=== PATIENT | female | born 2000 | race Hispanic/Latino ===

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

== ENCOUNTER 2021-04-25 22:45 | Emergency (ER) | payer OTHER ==
--- OUTSIDE RECORDS SUMMARY | 2021-04-25 22:48 | XMS REPORT | Continuity of Care Document ---
:2000 Author Organization [facility] t Address [address] [place] [address] [address]. [address] [place] [address] Care Team Providers Name Role Phone Michelle Alarcon Primary Care Physician Luis Antonio SHAH Attending Clinician Blair SHAH Attending Clinician Kevin SHAH Attending Clinician Doctor Unassigned, Name Attending Clinician Unavailable Angeliat Zurita PA-C Attending Clinician Lab, Fam Pob I Attending Clinician Unavailable Salty GÓMEZ Attending Clinician Negra Garber DO Attending Clinician Alireza Lazar Attending Clinician Visit, Nurse Attending Clinician Unavailable Flaco FISHMAN Attending Clinician Kevin SHAH Admitting Clinician Payers Payer Name Policy Type Policy Number Effective Date Expiration Date S ource Problems Condition Condition Condition Status Onset Resolution Last Treating Co mments Source Name Details Category Date Date Treatment Clinician Date Dyspareuni Dyspareuni Disease Active U nivers a in a in 5-04 ity of female female 00:00: [address] Depo-Prove Depo-Prove Disease Active U nivers ra ra 1-04 [place] status michele status 00 Me dical Branch Rubella Rubella Disease Active Overview: Univ ers non-immune non-immune 4-16 Formattin ity of status, status, 00:00: g of this [place] antepartum antepartum 00 note Me dical might be Branch different from the original. Address in Postpartu m Vaginal Vaginal Disease Active Univers itching itching 4-15 ity of 00:00: [address] H/O back H/O back Disease Active Unive rs injury injury 4-15 ity of 00:00: [address] Anxiety Anxiety Disease Active Univers ity of [facility] Depression Depression Disease Active U nivers ity of [facility] Allergies, Adverse Reactions, Alerts This patient has no known allergies or adverse reactions. Social History Social Habit Start Date Stop Date Quantity Comments Source History of Smoker University of tobacco use [facility] Exposure to Not sure University of SARS-CoV-2 [facility] (event) [place] Alcohol intake 2021-04-24 2021-04-24 Current drinker Unive rsity of 00:00:00 00:00:00 of alcohol [facility] (finding) [place] Tobacco use and 2020-10-13 2020-10-13 Never used Universit y of exposure 00:00:00 00:00:00 [facility] Alcohol Comment 2020-10-13 2020-10-13 occasional Universit y of 00:00:00 00:00:00 drinker [facility] Tobacco Comment 2020-08-06 2020-08-06 vape Universit y of 00:00:00 00:00:00 [facility] History SDOH 2020-04-27 2020-04-27 99 University o f Alcohol Frequency 00:00:00 00:00:00 [facility] edical Branch History SDOH 2020-04-27 2020-04-27 99 University o f Alcohol Std 00:00:00 00:00:00 [place] Medical Drinks Branch History SDOH 2020-04-27 2020-04-27 99 [place] o f Alcohol Binge 00:00:00 00:00:00 [place] Medic al Branch Sex Assigned At [birth year] Universit y of 00:00:00 00:00:00 [facility] Smoking Status Start Date Stop Date Source Former smoker 2020-10-13 00:00:00 2020-10-13 00:00:00 [facility] Medications Ordered Filled Start Stop Current Ordering Indication Dosage Frequency Signature Comments Components Source Medication Medication Date Date Medication? Clinician (SIG) Name Name Nitrofurant 2020-06- Yes [id number] 100mg Take 1 Univers oin&Nit. 06-24 capsule by ity of [place] 00:00: 05:59 mouth 2 Jesus as 100 mg 00 :00 (two) Medical capsule times Branch daily for 7 days. medroxyPROG Yes [id number] 150mg Univers ESTERone 7-15 ity of (DEPO-PROVE 22:15: [facility]) 00 Medical injection Branch 150 mg Flagyl Flagyl 2018- No Mary [address] 11-2018 [facility] 00:[facility]: 00:00 [facility] 00 :00 [facility] Immunizations Ordered Filled Immunization Date Status Comments Sour e Immunization Name Name Influenza Virus 2020-05-12 Completed Universit y of Vaccine Quad .5 mL 00:00:00 [place] Medical IM 6+ MO Branch Influenza Virus 2019 Completed Universit y of Vaccine Quad .5 mL 00:00:00 [place] Medical IM 6+ MO Branch Vital Signs Vital Name Observation Time Observation Value Comments Source Systolic blood 2021-04-24 15:32:00 93 mm[Hg] Univer sity of pressure [facility] Diastolic blood 2021-04-24 15:32:00 50 mm[Hg] Unive rsity of pressure [facility] Heart rate 2021-04-24 15:32:00 84 /min [facility] Body temperature 2021-04-24 15:32:00 37.06 Nita Univ ersity of [facility] Body height 2021-04-24 15:32:00 160 cm [facility] Body weight 2021-04-24 15:32:00 56.7 kg [facility] BMI 2021-04-24 15:32:00 22.14 kg/m2 [facility] Oxygen saturation in 2021-04-24 15:32:00 99 /min University Arterial blood by [facility] Pulse oximetry Branch Procedures Procedure Date / Time Performed Performing Clinician Sourc e POCT URINALYSIS 2021-04-24 15:45:00 [facility] o f [facility] Encounters Start End Encounter Admission Attending Care Care Encounter Source Date/Time Date/Time Type Type Clinicians Facility Department ID 2021-04-24 2021-04-24 Urgent Bea Salmon [facility] [id number] [facility] 09:21:28 10:06:51 Care [facility] [id number] itmonse [facility] [id number] Jesus as MARIANO?BLEA [id number] [address] MEDICAL OFFICE BUILDING 2021-04-16 2021-04-16 ambulatory STLMLC ST[facility]C [id number] [facility] St 00:00:00 00:00:00 [facility] 2020-01-18 2020-01-18 [facility] [id number] 22:44:00 23:55:00 Encounter [place] [id number] [employer] [id number] [place] [id number] [id number] 2020-01-18 2020-01-18 Orders Doctor UPTON [id number] 00:00:00 00:00:00 Only Unassigned, CINTHIA [id number] [facility] [id number] [id number] [id number] 2019-12-23 2019-12-23 Telephone Isidra Zurita [id number] 00:00:00 00:00:00 Angelita VICENTE [id number] [facility] [id number] [id number] 2019-12-18 2019-12-18 Laboratory Lab, [facility] [id number] 14:34:13 14:54:13 Only Fam Pob I [facility] [id number] [place] [id number] [facility] [id number] nal [address] One 2019-12-08 2019-12-08 Emergency Salty, [facility] [id number] 10:17:44 12:31:00 Mirtha Bhandari [id number] [employer] [id number] [place] [id number] [id number] 2019-12-08 2019-12-08 Orders Doctor WON 1.2.840.114 [id number] 00:00:00 00:00:00 Only Unassigned, CINTHIA [id number] [place] [id number] [id number] [id number] 2019-10-14 2019-10-14 [facility] 1.2.840.114 [id number] 21:39:58 23:24:00 Kimmie Omer Elisabet [id number] [employer] [id number] [place] [id number] 2019-09-26 2019-09-26 [facility] [id number] 00:00:00 00:00:00 Roshunda R CHASSIS WIRER [id number] REGIONAL [id number] MATERNAL [id number] & CHILD [address] 2019 2019 Initial [facility] [id number] 08:33:50 10:03:01 Roshunda R CHASSIS WIRER [id number] Visit REGIONAL [id number] MATERNAL [id number] & CHILD [address] 2019 2019 Orders Doctor [place] 1.2.840.114 [id number] 00:00:00 00:00:00 Only Unassigned, CINTHIA [id number] [place] [address]686 [id number] [id number] 2019-09-23 2019-09-23 Telephone Visit, [facility] [id number] 00:00:00 00:00:00 [facility] CHASSIS WIRER [id number] Nurse [facility] [id number] MATERNAL [id number] & CHILD [address] [place] [address] 2019-07-11 2019-07-11 Telephone Flaco ALSAMUEL 1.2.840.114 [id number] 00:00:00 00:00:00 Stephanie Bhandari [id number] [employer] [id number] Professio [id number] [address] 2019-07-03 2019-07-03 Telephone Flaco, [facility] 1.2.840.114 [id number] 00:00:00 00:00:00 Stephanie Bhandari [id number] [employer] [id number] Professio [id number] [address] 2019-06-29 2019-06-29 Case [facility] [id number] 00:00:00 00:00:00 Management Stephanie Bhandari [id number] [employer] [id number] Professio [id number] [address] 2019-06-28 2019-06-28 Office Flaco ALSAMUEL [id number] 09:06:52 09:36:01 Visit Stephanie Bhandari [id number] [employer] [id number] Professio [id number] [address] 2017-11-20 2017-11-20 [facility] [id number] [address] 11:46:00 11:46:00 [facility] 2017-11-09 2017-11-09 [facility] [id number] 14:09:00 14:09:00 [facility] 2017-11-09 2017-11-09 [facility] [id number] 10:15:00 10:15:00 [facility] Outpat[facility] Clinics Results Test Description Test Time Test Comments Results Result Comments Source POCT URINALYSIS W SPECIFIC GRAVITY 2021-04-24 15:48:00 Test Item Value Reference Range Interpretation Comme nts POCT U SP GRAV (test code = 1.015 mg/dl 1.005-1.025 3255) POCT PH U (test code = 3254) 5 mg/dl 5-8 POCT U LEUK EST (test code = + Negative - Negative 3263) POCT U NIT (test code = 3262) NEG Negative - Negative POCT U PROT (test code = 3259) NEG Negative - Negative POCT U GLU (test code = 3256) NEG Negative - Negative POCT U KETONE (test code = NEG Negative - Negative 3258) POCT U UROBILI (test code = NORMAL 0.2-1 3260) POCT U BILI (test code = 3261) NEG Negative - Negative POCT U BLD (test code = 3257) NEG Negative - Negative POCT U COLOR (test code = 3266) YELLOW POCT U APPEAR (test code = CLOUDY 3267) HAILEY (test code = HAILEY) accurate development and interpretation of all internal controls Lab Interpretation (test code = Abnormal 58298-0) [facility]
[2021-04-26] MEDS ORDERED: DIPHENHYDRAMINE 50 MG/ML VIAL ONE (00:37)
[2021-04-26] MEDS ORDERED: NA CHLORIDE 0.9% 1,000 ML ONE (00:37)
[2021-04-26] MEDS ORDERED: KETOROLAC 30 MG/ML INJ ONE ×2 (00:37→02:21)
[2021-04-26] MEDS ORDERED: METOCLOPRAMIDE 10 MG/2mL INJ ONE (00:37)
--- NOTE | 2021-04-26 02:41 | EDPHYS ---
Physician Documentation [facility] Name: Vania Pineda Age: 20 yrs Sex: Female : 2000 Arrival Date: 04/25/2021 Time: 23:08 Bed 5 Private MD: ED Physician Doni Rey HPI: 04/26 00:15 This 20 yrs old Female presents to ER via Ambulatory with complaints of pm1 Headache. 00:15 The patient complains of pain to the top of head, forehead, right spiritism and left pm1 spiritism. The patient describes the headache as aching. Onset: The symptoms/episode began/occurred 1 month(s) ago. Associated signs and symptoms: Pertinent positives: nausea, Pertinent negatives: fever, neck stiffness, paresthesias, Photophobia weakness. Severity of symptoms: in the emergency department the pain is actually worse. Headache History: Denies prior headaches. The patient has not experienced similar symptoms in the past. The patient has been recently seen by a physician: the patient's primary care provider, with similar presenting complaints, lab tests were done. 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 - Social history:: Smoking status: Reported history of juuling and/or vaping. ROS: 04/26 00:15 Constitutional: Negative for fever, chills, and weight loss, Cardiovascular: Negative pm1 for chest pain, palpitations, and edema, Respiratory: Negative for shortness of breath, cough, wheezing, and pleuritic chest pain, MS/Extremity: Negative for injury and deformity, Skin: Negative for injury, rash, and discoloration. Abdomen/GI: Positive for nausea, Negative for abdominal pain, vomiting, diarrhea. Neuro: Positive for headache, Negative for numbness, tingling, weakness. All other systems are negative. Exam: 00:15 Constitutional: This is a well developed, well nourished patient who is awake, alert, pm1 and in no acute distress. Head/Face: Normocephalic, atraumatic. 00:15 Neck: Trachea midline, no thyromegaly or masses palpated, and no cervical lymphadenopathy. Supple, full range of motion without nuchal rigidity, or vertebral point tenderness. No Meningismus. 00:15 Skin: Warm, dry with normal turgor. Normal color with no rashes, no lesions, and no evidence of cellulitis. MS/ Extremity: Pulses equal, no cyanosis. Neurovascular intact. Full, normal range of motion. 00:15 Eyes: Exam is negative for acute changes, Extraocular movements: no acute changes, Conjunctiva: no acute changes, no injection. 00:15 ENT: Mouth: no acute changes, Lips: normal, moist, Oral mucosa: normal, pink and intact, moist. 00:15 Cardiovascular: Exam negative for acute changes, Rate: normal, Rhythm: regular, Pulses: no pulse deficits are appreciated. 00:15 Respiratory: Exam negative for acute changes, respiratory distress, shortness of breath. 00:15 Neuro: Exam negative for acute changes, Orientation: is normal, Mentation: is normal, Cranial nerves: CN II- XII are normal as tested, Motor: is normal, moves all fours, Gait: is steady, at a normal pace, without difficulty. Vital Signs: 04/25 23:17 BP 136 / 81; Pulse 94; Resp 16; Temp 99.0; Pulse Ox 100% ; Weight 56.7 kg; Height 5 ft. vg1 3 in. (160.02 cm); Pain 10/10; 23:17 Body Mass Index 22.14 (56.70 kg, 160.02 cm) vg1 MDM: 04/26 00:08 Patient medically screened. pm1 02:08 Data reviewed: vital signs. Data interpreted: Pulse oximetry: on room air is 100 %. pm1 Interpretation: normal. 02:40 Counseling: I had a detailed discussion with the patient and/or guardian regarding: the pm1 historical points, exam findings, and any diagnostic results supporting the discharge/admit diagnosis, radiology results, the need for outpatient follow up, to return to the emergency department if symptoms worsen or persist or if there are any questions or concerns that arise at home. 04/26 00:15 Order name: CT Head Brain wo Cont pm1 04/26 00:15 Order name: Urine Dipstick-Ancillary (obtain specimen); Complete Time: 02:00 pm1 04/26 00:15 Order name: Urine Test (obtain specimen); Complete Time: 02:00 pm1 Administered Medications: 01:08 Drug: Reglan (metoCLOPramide) 10 mg Route: IVP; Site: left antecubital; bs2 01:08 Drug: Benadryl (diphenhydrAMINE) 25 mg Route: IVP; Site: left antecubital; bs2 01:08 Drug: NS 0.9% 1000 ml Route: IV; Rate: 1000 ml; Site: left antecubital; bs2 Disposition Summary: 04/26/21 02:40 Discharge Ordered Location: Home pm1 Problem: new pm1 Symptoms: have improved pm1 Condition: Stable pm1 Diagnosis - Headache pm1 Followup: pm1 - With: Emergency Department - When: As needed - Reason: Worsening of condition Followup: pm1 - With: Private Physician - When: 2 - 3 days - Reason: Recheck today's complaints, Continuance of care, Re-evaluation by your physician Discharge Instructions: - Discharge Summary Sheet pm1 - General Headache Without Cause pm1 Forms: - Medication Reconciliation Form pm1 - Thank You Letter pm1 - Antibiotic Education pm1 - Prescription Opioid Use pm1 - Work release form mw2 Prescriptions: - [id number] - take 1 tablet by ORAL route every 4 hours As needed; 20 tablet; Refills: 0, pm1 Product Selection Permitted Signatures: Dispatcher [employer] Michael Hutchison NP PRODUCT TECHNICIAN pm1 Dorothy Morin RN RN vg1 Carmen Lee RN RN bs2
--- NOTE | 2021-04-26 02:41 | ER ---
Nurse's Notes [facility] Name: Vania Pineda Age: 20 yrs Sex: Female : 2000 Arrival Date: 04/25/2021 Time: 23:08 Bed 5 Private MD: Diagnosis: Headache Presentation: 04/25 23:17 Chief complaint: Patient states: Headache x3 weeks with nausea, states 'seeing spots vg1 and feels like Im going to faint' also states lightheartedness. Denies sensitivity to light. Coronavirus screen: Vaccine status: Patient reports being unvaccinated. Ebola Screen: Patient negative for fever greater than or equal to 101.5 degrees Fahrenheit, and additional compatible Ebola Virus Disease symptoms. Initial Sepsis Screen: Does the patient meet any 2 criteria? No. Patient's initial sepsis screen is negative. Does the patient have a suspected source of infection? No. Patient's initial sepsis screen is negative. Risk Assessment: Do you want to hurt yourself or someone else? Patient reports no desire to harm self or others. Onset of symptoms was April 04, 2021. 23:17 Method Of Arrival: Ambulatory vg1 23:17 Acuity: SUSAN 3 vg1 Triage Assessment: 23:20 Headache History: The patient has had previous headaches and this one is more severe vg1 than previous episodes. General: Appears in no apparent distress. uncomfortable, Behavior is calm, cooperative. Pain: Complains of pain in head Pain currently is 10 out of 10 on a pain scale. Pain began x3 weeks Also complains of nausea. Neuro: Level of Consciousness is awake, alert, obeys commands, Oriented to person, place, time, situation. CLIN NURSE: 23:20 LMP N/A - control method vg1 Historical: - Allergies: 23:19 NKA; vg1 - PMHx: 23:19 None; vg1 - PSHx: 23:20 Back T12 L1; vg1 - Immunization history:: Client reports having NOT received the Covid vaccine. - Social history:: Smoking status: Reported history of juuling and/or vaping. Vital Signs: 23:17 BP 136 / 81; Pulse 94; Resp 16; Temp 99.0; Pulse Ox 100% ; Weight 56.7 kg; Height 5 ft. vg1 3 in. (160.02 cm); Pain 10/10; 23:17 Body Mass Index 22.14 (56.70 kg, 160.02 cm) vg1 ED Course: 23:08 Patient arrived in ED. bp1 23:19 Triage completed. vg1 23:20 Arm band placed on. vg1 04/26 00:00 Michael العراقي NP is PHCP. pm1 00:00 Doni Rey MD is Attending Physician. pm1 00:33 Carmen Lee, RN is Primary Nurse. bs2 00:41 CT Head Brain wo Cont In Process Unspecified. EDMS Administered Medications: 01:08 Drug: Reglan (metoCLOPramide) 10 mg Route: IVP; Site: left antecubital; bs2 01:08 Drug: Benadryl (diphenhydrAMINE) 25 mg Route: IVP; Site: left antecubital; bs2 01:08 Drug: NS 0.9% 1000 ml Route: IV; Rate: 1000 ml; Site: left antecubital; bs2 Outcome: 02:40 Discharge ordered by . pm1 03:09 Patient left the ED. mw2 Signatures: Dispatcher [employer] EDMS Michael العراقي NP GUM ROLLING MACHINE OPERATOR pm1 Daina Espinoza mw2 Dorothy Morin RN RN vg1 Marie Gonzales [facility] Carmen Lee, JAYLYN RN bs2
[2021-04-26 05:23] VITALS: BP 136/81; TEMP 99; O2SAT 100
--- NOTE | 2021-04-26 13:11 | RAD REPORT ---
EXAM DESCRIPTION: CT - Head Brain Wo Cont - 04/26/2021 2:09 am CLINICAL HISTORY: 20 years Female HEADACHE COMPARISON: None TECHNIQUE: Contiguous axial images of the brain were obtained without the administration of intraven ous contrast.This exam was performed according to our departmental dose-optimization program which in cludes use of Automated Exposure Control, adjustment of the mA and/or kV according to patient size an d/or use of iterative reconstruction technique. DLP: 827 mGy*cm FINDINGS: Brain: No acute intracranial hemorrhage. No extra-axial collection. No mass effect or tierney iation. Ventricles: Within normal limits in size. Globes and orbits: No acute abnormality. Bones: No acute osseous finding Paranasal sinuses: Paranasal sinuses are clear. Mastoid air cells: Well pneumatized. Soft tissues: Within normal limits IMPRESSION: No acute intracranial abnormality. Electronically signed by: Sukumar Broderick DO 04/26/2021 12:49 AM GUSSET MAKER Due to temporary technical issues with the PACS/Fluency reporting system, reports are being signed by the in house radiologists without review as a courtesy to insure prompt reporting. The interpreting radiologist is fully responsible for the content of the report.
== END 2021-04-26 03:09 | disposition home or self-care (01) ==
LOC: ER 22:45
DX: R51.9 Headache, unspecified (principal)
CPT/HCPCS: 70450; 96375; 96374; 99283; J2765; J1200; J7030